=== PATIENT | female | born 1950 | race Caucasian/White ===

== ENCOUNTER 2018-12-19 11:47 | Day surgery (SDC) | payer OTHER | END 2018-12-19 14:40 | disposition home or self-care (01) | LOC: FASU 11:47 ==

== ENCOUNTER 2018-12-26 06:28 | Day surgery (SDC) | payer OTHER ==
[2018-12-05 14:19] VITALS: BMI 26.4
[2018-12-26] MEDS: PHENYLEPHRINE 2.5% OPHTH SOLN 15 ML BOTTLE ONE ×4 (07:05→07:20)
[2018-12-26] MEDS: TROPICAMIDE 1% OPHTH SOLN 15 ML BOTTLE ONE ×4 (07:05→07:20)
[2018-12-26] MEDS: OFLOXACIN 0.3% OPHTHALMIC SOLUTION 5 ML BOTTLE ONE ×4 (07:05→07:20)
[2018-12-26] MEDS: CYCLOPENTOLATE HCL 1% OPHTH SOLN 2 ML BOTTLE ONE ×4 (07:05→07:20)
[2018-12-26] MEDS: KETOROLAC TROMETHAMINE 0.5% EYE DROP 1 DROP DROPS ONE ×4 (07:05→07:20)
[2018-12-26] MEDS ORDERED: BACITRACIN/POLYMYXIN OPH OINT 3.5 GM TUBE ONE (07:13)
[2018-12-26] MEDS ORDERED: BETAXOLOL HCL 0.25% OPHTHALMIC 10 ML DROPSBTL ONE (07:13)
[2018-12-26] MEDS ORDERED: EPI-SHUGARCAINE (EPINEPHRINE 0.025% & LIDOCAINE-PF 0.75%) 4ML ONE (07:14)
[2018-12-26] MEDS ORDERED: TETRACAINE 0.5% OPHTH SOLN 2 ML BOTTLE ONE (07:14)
[2018-12-26] MEDS ORDERED: LIDOCAINE HCL/PF 2% SDV 5ML VIAL ONE (07:14)
[2018-12-26] MEDS ORDERED: BUPIVACAINE HCL/PF 0.5% (5MG/ML) 10 ML VIAL ONE (07:15)
[2018-12-26] MEDS ORDERED: LIDOCAINE HCL 2% JELLY 10 ML CARTRIDGE ONE (07:15)
[2018-12-26] MEDS ORDERED: ACETYLCHOLINE 1:100 INTRA-OCUL 20 MG/2 ML KIT ONE (07:15)
[2018-12-26] MEDS ORDERED: NEO/POLYMYX B SULF/DEXAMETH OPHTHALMIC 5ML BOTTLE ONE (07:15)
[2018-12-26] MEDS ORDERED: EPINEPHrine/PF 1 MG/1 ML (1:1,000) AMPULE ONE (07:26)
[2018-12-26] MEDS ORDERED: MIDAZOLAM HCL 2 MG/2 ML SINGLE DOSE VIAL ONE (07:50)
[2018-12-26] MEDS ORDERED: CARBACHOL 0.01% INTRA-OCULAR 1.5 ML VIAL ONE (09:15)
[2018-12-26] MEDS ORDERED: ACETAMINOPHEN 325 MG TABLET (FP) PO PRN ×2 (09:35→09:43)
[2018-12-26] MEDS ORDERED: ONDANSETRON 4 MG/2 ML VIAL IVPUSH PRN (09:43)
[2018-12-26] MEDS ORDERED: oxyCODONE HCL 5 MG TABLET PO PRN (09:43)
[2018-12-26 09:53] VITALS: TEMP 97.7
[2018-12-26 10:41] VITALS: BP 150/77; PULSE 48
--- NOTE | 2018-12-26 10:52 | OP ---
DATE OF OPERATION: 12/26/2018 PROCEDURE: Planned extracapsular cataract extraction, phacoemulsification, insertion of posterior chamber lens implant, left eye. SURGEON: Maurice Marcial MD PRODUCT EXAMINER SURGEON: Vanda Sloan MD ANESTHESIA: Local with standby. SURPLUS PROPERTY DISPOSAL AGENT: Aliya Osborn MD COMPLICATIONS: None. PREOPERATIVE DIAGNOSIS: Mature cataract, left eye. POSTOPERATIVE DIAGNOSIS: Mature cataract, left eye. FINDINGS/PROCEDURE: After successful topical drops and lidocaine gel was placed on the left eye, the patient was prepped and draped in the usual manner to expose the left eye. Tegaderm strips placed. Speculum was placed in the lid to them open, and an operating room microscope was in position over the left eye. Attention was focused superiorly where a superior fornix-based flap was then fashioned. Shugarcaine was used extensively throughout the procedure. After hemostasis was achieved with Wet-Field cautery, 3-mm blade was used to produce a groove at 12 o'clock for 3 mm dissecting anterior into clear cornea then a 3-mm blade was used to enter the anterior chamber. Then under Viscoat, a 360-degree anterior capsulotomy was performed. Leaflet removed from the eye and then phacoemulsification of the entire nucleus was done in approximately 2 minutes time followed by irrigation, aspiration of all cortical material leaving intact posterior capsule and a red reflex present. Provisc was injected to the posterior chamber to deepen the posterior capsule and then the implant was inspected carefully with the microscope. Found to be free of defects, debris, and flaws. Irrigated thoroughly with BSS and then it was folded, placed in the Provisc-filled cartridge, the cartridge placed in the injector, and the implant was injected into the eye such that the inferior haptic was in inferior capsular bag and the superior haptic in the superior capsular bag and rotated in a horizontal position with a Sinskey hook. The Provisc was aspirated out. We placed in Miochol, Miostat, and BSS, and the wound was closed with a single interrupted 2-0 Ethilon suture and tested for leakage, and none was found. Conjunctival tenon flap was reapproximated and then at this point the implant was fixated in the capsular bag centrally located with a round pupil, entire posterior capsule, red reflex present with a normotensive eye. Topical Betoptic S and Maxitrol ophthalmic suspensions were placed as was the bacitracin polymyxin B ophthalmic ointment. Then the Tegaderm strips were removed as was the lid speculum. The lids were closed and a shield placed over the left eye, head elevated, and the patient was then discharged from the operating room to the recovery area in good condition having tolerated the procedure well. Manolo [id number]
== END 2018-12-26 10:25 | disposition home or self-care (01) ==
LOC: FASU 06:28
PROVIDERS: ATTEND Ophthalmology
PROC: 08RK3JZ Replacement of Left Lens with Synthetic Substitute, Percutaneous Approach (ICD-10-PCS; principal; 2018-12-26 08:31)
DX: H26.8 Other specified cataract (principal)